=== PATIENT | male | born 1995 | race Caucasian/White ===

== ENCOUNTER 2019-06-16 21:06 | Inpatient (IN) | payer OTHER ==
[~2019-06-16] VITALS: Ht 180.3 cm; Wt 75.9 kg
[2019-06-16] MEDS ORDERED: NS 1,000 ML IV ONE (21:30)
[2019-06-16 21:42] LABS: BASO % 0.3 % (0.0-1.0); EOS # 0.1 10^3/uL (0.0-0.5); EOS % 0.7 % (0.0-3.0); HEMATOCRIT 44.9 % (42.0-52.0); HEMOGLOBIN 15.1 g/dl (13.5-17.5); LYMPH # 2.6 10^3/uL (1.5-5.0); LYMPH % 28.9 % (24.0-44.0); MEAN CORPUSCULAR HEMOGLOBIN 29.8 pg (27.0-33.0); MEAN CORPUSCULAR HGB CONC 33.6 g/dl (32.0-36.5); MEAN CORPUSCULAR VOLUME 88.7 fl (80.0-96.0); MONO # 0.7 10^3/uL (0.0-0.8); MONO % 7.2 % (0.0-5.0); NEUTROPHILS # 5.7 10^3/uL (1.5-8.5); NEUTROPHILS % 62.6 % (36.0-66.0); PLATELET COUNT, AUTOMATED 251 10^3/uL (150-450); RED BLOOD COUNT 5.06 10^6/uL (4.30-6.10); WHITE BLOOD COUNT 9.1 10^3/uL (4.0-10.0)
[2019-06-16 22:15] LABS: AMPHETAMINES LEVEL URINE NEGATIVE (NEGATIVE); BARBITURATES URINE NEGATIVE (NEGATIVE); BENZODIAZEPINES URINE NEGATIVE (NEGATIVE); CANNABINOIDS URINE NEGATIVE (NEGATIVE); COCAINE METABOLITE URINE NEGATIVE (NEGATIVE); METHADONE URINE NEGATIVE (NEGATIVE); OPIATES URINE NEGATIVE (NEGATIVE); PHENCYCLIDINE URINE NEGATIVE (NEGATIVE)
--- NOTE | 2019-06-16 22:16 | ECGEPIP ---
[facility] - ED Test Date: 2019-06-16 Pat Name: KAT BARROSO Department: Room: - Gender: Male Net Application Architect: : 1998-03-23 Requested By: BROOKLYNN Moreira Order Number: [id number] Reading MD: Steph Galaviz Measurements Intervals Reading Rate: 119 P: 33 MN: 160 QRS: 36 QRSD: 97 T: 26 QT: 347 QTc: 488 Interpretive Statements SINUS TACHYCARDIA ABNORMAL RHYTHM ECG PROLONGED QTC NO PRIOR Electronically Signed on 06-16-2019 22:15:59 EST by Steph Galaviz
[2019-06-16 22:20] LABS: ACETAMINOPHEN LEVEL < 2.0 UG/ML (10.0-30.0); ALT/SGPT 28 U/L (12-78); BILIRUBIN,DIRECT 0.1 MG/DL (0.0-0.2); BILIRUBIN,TOTAL 0.5 MG/DL (0.2-1.0); BLOOD UREA NITROGEN 8 MG/DL (7-18); CALCIUM LEVEL 8.1 MG/DL (8.5-10.1); CARBON DIOXIDE LEVEL 27 MEQ/L (21-32); CHLORIDE LEVEL 104 MEQ/L (98-107); CPK CREATINE PHOSPHOKINASE 696 U/L (39-308); CREATININE FOR GFR 1.02 MG/DL (0.70-1.30); ETHYL ALCOHOL (ETHANOL) 0.299 % (0.000-0.010); GLOMERULAR FILTRATION RATE > 60.0 (>60); GLUCOSE, FASTING 72 MG/DL (70-100); POTASSIUM SERUM 3.7 MEQ/L (3.5-5.1); SALICYLATE LEVEL < 1.7 MG/DL (5.0-30.0); SODIUM LEVEL 142 MEQ/L (136-145); THYROID STIMULATING HORMONE 0.396 uIU/ML (0.358-3.740); TOTAL PROTEIN 7.2 GM/DL (6.4-8.2)
--- NOTE | 2019-06-17 11:02 | ED PDOC ---
TITA HERNANDEZ DO Jun 17, 2019 11:02
[2019-06-17] MEDS ORDERED: LORazepam 2 MG TAB PO PRN (11:45)
[2019-06-17] MEDS ORDERED: TRAZ1TAB10 PO (13:11)
[2019-06-17] MEDS ORDERED: SERT-138 PO (13:11)
[2019-06-17] MEDS ORDERED: ACAM0.05 PO (13:11)
[2019-06-17] MEDS ORDERED: BUPR300T34 PO (13:11)
[2019-06-17] MEDS ORDERED: GABA-843 PO (13:11)
[2019-06-17 13:42] VITALS: BP 160/98
[2019-06-17 13:50] VITALS: BP 160/98
[2019-06-17] MEDS: FOLIC ACID 1 MG TAB PO SCH (15:38)
[2019-06-17] MEDS: THIAMINE 100 MG TAB PO SCH ×2 (15:38→21:53)
[2019-06-17] MEDS: MULTIVITAMINS/MINERALS THERAP 1 TAB PO SCH (15:38)
--- NOTE | 2019-06-17 16:05 | HPEPDOC ---
General Date of Admission Jun 17, 2019 at 11:37 Date of Service: Jun 17, 2019 Attending Physician: MANUEL KUHN MD Chief Complaint The patient is a 24-year-old male admitted with a reason for visit of Depressive Disorder. Source: Patient Exam Limitations: No limitations Timing/Duration: 24 hours Severity: Other Associated Symptoms: Other History of Present Illness 24 yo man with a history of depression, alcohol use disorder, smoker, with frequent admissions to the [facility] who was brought into the ED after ingesting 4 bottles of cough medicine and some Tera Warner. He denies SI and reports that he has had recent stressors with significant marital discord, had a DUI on 06/16 and took the mixture to numb himself. He reports feeling depressed but not physically unwell. He does not remember the circumstance that led to him being in the ED. He otherwise reports feeling well, "actually feel high right now." He otherwise has no fever, chest pain, palpitations, drowsiness or anxiety. In the ED vitals were within normal limits and was afebrile. Work up was notable for normal CBC, BMP, LFTs with an elevated alk phos of 696 and an alcohol level of 0.299, with an EKG with sinus tachycardia and normal TSH. He was admitted to the [facility] and medicine was asked to consult for a full physical assessment. Home Medications Scheduled Acamprosate Calcium (Acamprosate Calcium) 333 Mg Tablet.dr, 666 MG PO TID, (Reported) Bupropion HCl (Bupropion Xl) 300 Mg Tab.er.24h, 300 MG PO DAILY, (Reported) Gabapentin (Gabapentin) 300 Mg Capsule, 300 MG PO QHS, (Reported) Sertraline HCl (Sertraline HCl) 100 Mg Tablet, 100 MG PO DAILY, (Reported) Scheduled PRN Trazodone HCl (Trazodone HCl) 50 Mg Tablet, 50 MG PO QHS PRN for SLEEP, (Reported) Allergies Coded Allergies: No Known Allergies (Unverified , 06/17/19) Past Medical History Medical History Alcohol use disorder Smoker Anxiety Depressed with history of SI Surgical History None Family History Significant Family History: No pertinent family hx Social History * Smoker: current smoker Alcohol: heavy Recent Travel/Sick Contacts: Denies: Recent travel, Recent sick contacts Psychosocial History: Anxiety, Depression [facility] from his and 2y old daughter, with ongoing divorce proceedings. A-FIB/CHADSVASC A-FIB History Current/History of A-Fib/PAF?: No Current PO Anticoag Therapy: No Age/Risk Factor Scoring CHADSVASC: CHADSVASC Response (Comments) Value Age Risk Factor Age < 65 years old 0 Gender Risk Factor Male 0 Hx of CHF No 0 Hx of HTN No 0 Hx of Stroke/TIA/or VTE No 0 Hx of Diabetes No 0 Hx of Vascular Disease No 0 Total 0 Treatment Treatment ordered: NONE Reason Anticoagulant not given: Not indicated/[id number] Review of Systems Constitutional: Denies: Chills, Fever, Night Sweats Eyes: Denies: Pain, Vision change ENT: Denies: Head Aches, Ear Pain, Dysphagia Skin: Denies: Rash, Lesions, Breakdown Pulmonary: Denies: Dyspnea, Cough Cardiovascular: Denies: Chest Pain, Palpitations, Orthopnea, Paroxysmal Noc. Dyspnea, Lt Headedness Gastrointestinal: Denies: Nausea, Vomiting, Abdominal Pain, Diarrhea Genitourinary: Denies: Dysuria, Frequency, Incontinence, Retention Hematologic: Denies: Bruising, Bleeding Excessively Endocrine: Denies: Polydipsia, Polyphagia, Polyuria, Heat Intolerance, Cold Intolerance, Other Endocrine Sx Musculoskeletal: Denies: Neck Pain, Back Pain, Joint Pain, Muscle Pain, Spasms Neurological: Denies: Weakness, Numbness, Change in speech, Confusion, Seizures Psych: Reports: Anxiety, Depression Physical Examination General Exam: Positive: Alert, No Acute Distress Eye Exam: Positive: PERRLA, Conjunctiva & lids normal, EOMI; Negative: Sclera icteric ENT Exam: Positive: Atraumatic, Mucous membr. moist/pink, Pharynx Normal Neck Exam: Positive: Supple; Negative: JVD, thyromegaly Chest Exam: Positive: Clear to auscultation, Normal air movement Heart Exam: Positive: Rate Normal, Regular Rhythm, Normal S1, Normal S2; Negative: Murmurs, Rubs Abdomen Exam: Negative: Normal bowel sounds, BS Hyperactive, BS Hypoactive, Soft, Tenderness, Hepatospenomegaly, Mass, Hernia, Other Extremity Exam: Positive: Normal pulses; Negative: Clubbing, Cyanosis, Edema Skin Exam: Positive: Nl turgor and temperature; Negative: Breakdown, Lesion Neuro Exam: Positive: Normal Gait, Normal Speech, Cranial Nerves 3-12 NL, Reflexes 2+ Psych Exam: Positive: Mental status NL, Mood NL, Oriented x 3 Vital Signs Vital Signs Date Time Temp Pulse Resp B/P (MAP) Pulse Ox O2 Delivery O2 Flow Rate FiO2 06/17/19 13:50 104 160/98 06/17/19 13:42 98.4 18 95 Room Air 06/16/19 21:20 2.0 Laboratory Data Labs 24H Laboratory Tests 2 06/16/19 21:29: Immature Granulocyte % (Auto) 0.3, Neutrophils (%) (Auto) 62.6, Lymphocytes (%) (Auto) 28.9, Monocytes (%) (Auto) 7.2H, Eosinophils (%) (Auto) 0.7, Basophils (%) (Auto) 0.3, Neutrophils # (Auto) 5.7, Lymphocytes # (Auto) 2.6, Monocytes # (Auto) 0.7, Eosinophils # (Auto) 0.1, Basophils # (Auto) 0.0, Nucleated Red Blood Cells % (auto) 0.0, Anion Gap 11, Glomerular Filtration Rate > 60.0, Calcium Level 8.1L, Total Bilirubin 0.5, Direct Bilirubin 0.1, Aspartate Amino Transf (AST/SGOT) 32, Alanine Aminotransferase (ALT/SGPT) 28, Alkaline Phosphatase 54, Total Creatine Kinase 696H, Total Protein 7.2, Albumin 4.0, Albumin/Globulin Ratio 1.25, Thyroid Stimulating Hormone (TSH) 0.396, Salicylates Level < 1.7L, Urine Opiates Screen NEGATIVE, Urine Methadone Screen NEGATIVE, Acetaminophen Level < 2.0L, Urine Barbiturates Screen NEGATIVE, Urine Phencyclidine Screen NEGATIVE, Urine Amphetamines Screen NEGATIVE, Urine Benzodiazepines Screen NEGATIVE, Urine Cocaine Metabolite Screen NEGATIVE, Urine Cannabinoids Screen NEGATIVE, Ethyl Alcohol Level 0.299H 06/16/19 21:39: Bedside Glucose (Misc Panel) 77 06/16/19 22:48: POC pH (Misc Panel) 7.324L, POC Base Excess (Misc Panel) 2.0, POC Saturated Percent O2 (Misc) 99H, POC pO2 (Misc Panel) 127.0H, POC pCO2 (Misc Panel) 54.5H, POC HCO3 (Misc Panel) 28.4H, POC Total CO2 (Misc Panel) 30.0H CBC/BMP Laboratory Tests 06/16/19 21:29 Assessment/Plan 24 yo man with a history of depression, alcohol use disorder, smoker, with frequent admissions to the [facility] who was brought into the ED after ingesting 4 bottles of cough medicine and some Tera Warner, whom medicine was consulted for physical assessment with a grossly normal examination with work up notable for high ethanol with otherwise normal labs. Plan Alcohol use disorder: -Recommend CIWA protocol, thiamine, folate per psychiatry management Ingestion: -Monitor, at baseline exam Depression and psychosocial issues: -Plan per psychiatry Medicine will sign off at this time. Please reconsult with any medical concerns Plan / VTE VTE Prophylaxis Ordered?: No VTE Exclusion Mechanical Proph: Low Risk for VTE VTE Exclusion Pharmacological: At Low Risk for VTE MANUEL KUHN MD Jun 17, 2019 16:05
[2019-06-17] MEDS: traZODone 50 MG TAB PO PRN (21:53)
[2019-06-18 06:00] VITALS: BP 137/87
[2019-06-18 06:13] VITALS: BP 137/87
[2019-06-18] MEDS: THIAMINE 100 MG TAB PO SCH (08:43)
[2019-06-18] MEDS: MULTIVITAMINS/MINERALS THERAP 1 TAB PO SCH (08:43)
[2019-06-18] MEDS: FOLIC ACID 1 MG TAB PO SCH (08:43)
[2019-06-18 14:07] VITALS: BP 146/92
[2019-06-18 16:11] VITALS: BP 144/92
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
[2019-06-18] MEDS: SERTRALINE HCL 50 MG TAB PO SCH (18:32)
[2019-06-18] MEDS: traZODone 50 MG TAB PO PRN (23:23)
[2019-06-19 06:13] VITALS: BP 129/74
[2019-06-19] MEDS: FOLIC ACID 1 MG TAB PO SCH (09:29)
[2019-06-19] MEDS: SERTRALINE HCL 50 MG TAB PO SCH (09:29)
[2019-06-19] MEDS: MULTIVITAMINS/MINERALS THERAP 1 TAB PO SCH (09:29)
--- NOTE | 2019-06-19 12:34 | MHIPNPDOC ---
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 He had reportedly made suicidal statements and was admitted out of an abundance of caution, although he denied that he had made such statements or had any intention of harming himself in the setting of multiple psychosocial stressors. Interval History The patient was met with today where he reports he is actually doing quite well. The patient reports that he had been abusing the Robitussin and alcohol as he wanted to avoid dealing with his 's new boyfriend, as they have been . He reports he has multiple stressors at work but that otherwise he has been coping with it well. He has had no major behavioral problems on the unit, is amenable, friendly, engaged without any potential signs of depression. He continues to deny any symptoms of depression at this time and reports that he is coping well. Review Of Systems General: Denies fever or appetite changes Cardiovascular: Denies Chest pain or palpations GI: Denies Nausea, vomiting, or bowel changes Respiratory: Denies shortness of breath or cough Neuro: Denies dizziness, tremors Derm: Denies any rashes or pruritus : Denies any dysuria or urinary problems MSK: Denies any muscle tightness or stiffness HEENT: Denies any vision changes or headaches Heme/Lymph: denies any bruising or bleeding Endo: denies any cold/heat intolerance or water intake changes Psychotherapy None on this visit. Vital Signs Reviewed. Mental Status Examination General: Well dressed with good hygiene Speech: Spontaneous and fluid Thought processes: Linear and logical MSK: Smooth and coordinated gait, no signs of tremors or involuntary orofacial movements Thought content: Future orientated Abstract reasoning, and computation: Intact Description of associations: Intact Description of abnormal or psychotic thoughts: Denies any suicidal or homicidal ideation. Denies any auditory or visual hallucinations. Does not appear to be responding to internal stimuli. Does not appear to be endorsing any bizarre or paranoid ideation. Judgment: fair Insight: fair Orientation: Alert and orientated 3 Cognition: Grossly normal Recent and remote memory: Intact Attention span and concentration: Intact Fund of knowledge: Adequate Mood: "okay" Affect: Euthymic with a full range Diagnoses Unspecified depressive disorder. Alcohol use disorder, severe. Hallucinogen use disorder, severe. Assessment and Plan Unspecified depressive disorder: Restart home medications of Wellbutrin and sertraline. Alcohol use disorder: Explored options. Recommended outpatient addiction. [facility] protocol has been in place. Hallucinogen use disorder: Recommend outpatient treatment. Disposition The patient will be observed for another day and likely discharged tomorrow, if he continues to do well on the unit with no signs of imminent danger. Time Spent 15 minutes [id number]. Thursday Vital Signs Vital Signs Date Time Temp Pulse Resp B/P (MAP) Pulse Ox O2 Delivery O2 Flow Rate FiO2 06/19/19 06:13 98.9 54 18 129/74 (92) 06/17/19 13:42 95 Room Air 06/16/19 21:20 2.0 Current Medications Current Medications Medications (Trade) Dose Ordered Sig/Daniel Route PRN Reason Start Time Stop Time Status Last Admin Dose Admin Folic Acid (Folic Acid) 1 mg DAILY PO 06/17/19 09:00 06/19/19 09:29 Home Med (Med Rec Complete!) ASDIRECTED XX 06/17/19 13:15 06/17/19 13:15 DC Lorazepam (Ativan) 2 mg ASDIRECTED PRN PO SEE PROTOCOL 06/17/19 11:45 Cancel Multivitamins (Theragram-M) 1 tab DAILY PO 06/17/19 09:00 06/19/19 09:29 Sertraline HCl (Zoloft) 50 mg QAM PO 06/18/19 09:00 06/19/19 09:29 Thiamine HCl (Thiamine HCl) 100 mg BID PO 06/17/19 12:00 06/18/19 19:20 DC 06/18/19 08:43 Trazodone HCl (Desyrel) 50 mg QHS PRN PO INSOMNIA 06/17/19 19:45 06/18/19 23:23 Allergies Coded Allergies: No Known Allergies (Unverified , 06/17/19) TITA HERNANDEZ DO Jun 19, 2019 12:34
[2019-06-19 16:00] VITALS: BP 138/88
[2019-06-19] MEDS: traZODone 50 MG TAB PO PRN (23:02)
[2019-06-20 06:22] VITALS: BP 138/75
[2019-06-20] MEDS ORDERED: buPROPion **XL** TABLET 150MG (WELLBUTRIN XL) PO SCH (09:00)
[2019-06-20] MEDS ORDERED: SERTRALINE 100 MG TAB PO SCH (09:00)
[2019-06-20] MEDS ORDERED: NALTREXONE 50 MG TAB PO SCH (09:00)
[2019-06-20] MEDS: FOLIC ACID 1 MG TAB PO SCH (09:44)
[2019-06-20] MEDS: MULTIVITAMINS/MINERALS THERAP 1 TAB PO SCH (09:44)
--- NOTE | 2019-06-20 10:14 | MHDSPDOC ---
[facility] Discharge Summary Discharge Summary DATE OF ADMISSION: Jun 17, 2019 at 11:37 DATE OF DISCHARGE: 06/20/19 Discharge Stef Bacon MRN: N/A Date of : N/A Date of Service: 06/20/2019 Diagnoses Unspecified depressive disorder. Alcohol use disorder, severe. Hallucinogen use disorder, severe. 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 He had reportedly made suicidal statements and was admitted out of an abundance of caution, although he denied that he had made such statements or had any intention of harming himself in the setting of multiple psychosocial stressors. Consultants Involved Hospitalist/PCP screening Treatment and Progress On The Unit The patient was admitted to the inpatient unit out of abundance of caution. He had continually denied that he had had any suicidal intent and had been abusing the alcohol and cough syrup. He reported he had a history of abusing cough syrup. He was observed for 48 hours on the inpatient unit where he was amenable, friendly, had a normal mental status exam, denied any suicidal or homicidal ideation and he was resumed on his home medications, first sertraline then Wellbutrin with positive results. He reports otherwise he has done well even with multiple stressors. He does report that his finding a new boyfriend had gotten him significantly distressed where he had wanted to abuse alcohol and cough syrup in order to deal with the emotions, but that he emphatically had no reason to kill himself per his report. On the day of discharge, he did not meet involuntary criteria due to prominence of the factors above. He declined further voluntary admission and thus was discharged in good graham with a becerra recommendation to follow up with addiction services. 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 Mental Status Examination General: Well dressed with good hygiene Speech: Spontaneous and fluid Thought processes: Linear and logical MSK: Smooth and coordinated gait, no signs of tremors or involuntary orofacial movements Thought content: Future orientated Abstract reasoning, and computation: Intact Description of associations: Intact Description of abnormal or psychotic thoughts: Denies any suicidal or homicidal ideation. Denies any auditory or visual hallucinations. Does not appear to be responding to internal stimuli. Does not appear to be endorsing any bizarre or paranoid ideation. Judgment: fair Insight: fair Orientation: Alert and orientated 3 Cognition: Grossly normal Recent and remote memory: Intact Attention span and concentration: Intact Fund of knowledge: Adequate Mood: "okay" Affect: Euthymic with a full range Follow Up The social work team worked during the predischarge meeting in order to evaluate for further issues of lethality address them fully before discharge. They worked on safety planning with the patient's family members in order to ensure that the patient will have a safe and effective discharge. Time Spent The amount of time spent in the coordination of care for this patient was approximately 60 minutes. Thursday Vital Signs/I&Os Vital Signs Date Time Temp Pulse Resp B/P (MAP) Pulse Ox O2 Delivery O2 Flow Rate FiO2 06/20/19 06:22 98.7 63 16 138/75 (96) 06/17/19 13:42 95 Room Air 06/16/19 21:20 2.0 Medications Scheduled Acamprosate Calcium (Acamprosate Calcium) 333 Mg Tablet.dr, 666 MG PO TID, (Reported) Bupropion HCl (Bupropion Xl) 300 Mg Tab.er.24h, 300 MG PO DAILY, (Reported) Gabapentin (Gabapentin) 300 Mg Capsule, 300 MG PO QHS, (Reported) Sertraline HCl (Sertraline HCl) 100 Mg Tablet, 100 MG PO DAILY, (Reported) Scheduled PRN Trazodone HCl (Trazodone HCl) 50 Mg Tablet, 50 MG PO QHS PRN for SLEEP, (Reported) Allergies Coded Allergies: No Known Allergies (Unverified , 06/17/19) TITA HERNANDEZ DO Jun 20, 2019 10:14
== END 2019-06-20 13:00 | disposition home or self-care (01) | DRG 881 ==
LOC: M ED 21:06 → EDBD 21:06 → M ED INP 06-17 11:37 → M PSY 06-17 12:58
PROVIDERS: ADMIT Psychiatry & Neurology Addiction Medicine; ATTEND Psychiatry & Neurology Addiction Medicine
DX: F32.9 Major depressive disorder, single episode, unspecified (principal); F16.20 Hallucinogen dependence, uncomplicated; R45.851 Suicidal ideations; F10.10 Alcohol abuse, uncomplicated; Z79.899 Other long term (current) drug therapy; F17.200 Nicotine dependence, unspecified, uncomplicated; F41.9 Anxiety disorder, unspecified